=== PATIENT | female | born 1975 | race Caucasian/White ===

== ENCOUNTER 2018-08-01 15:30 | Outpatient (REF) | payer BC, SELFPAY ==
--- NOTE | 2018-08-01 14:00 | PAPFT_PTH ---
PATIENT: Myla Johnson LOC: N U#:[id number] AGE/SX: 43/F ROOM: RE08/01/[address]: Alyson Lopez MD : [id number] BED: DIS: 08/01/2018 SPEC #: [id number] RECD: 08/01/18 17:49 STATUS: REJI REQ #: [id number] MICHAEL: 08/01/18 14:[address]: Alyson Lopez DEPT: [facility] Cytology RECD BY: Bhumi Hurtado ENTERED: 08/01/18 17:49 SP TYPE: PAPFT KALLI DR: Feliz Turner MD Tissues: 1 - CX/ENDOCX FOR PAP SMEARS Procedures: PAP THIN PREP/[facility] Screening HPV DNA PROBE Comments: [id number]
== END 2018-08-01 15:50 ==
LOC: LBN 15:30
PROVIDERS: PCP Family Medicine; Visit Provider Obstetrics & Gynecology
DX: Z12.4 Encounter for screening for malignant neoplasm of cervix (principal); Z11.51 Encounter for screening for human papillomavirus (HPV)
CPT/HCPCS: 88142; 87624

== ENCOUNTER 2019-02-02 02:16 | Outpatient (CLI) | payer BC, SELFPAY ==
[2019-02-02 08:03] LABS: Calculated LDL 188 mg/dL; Cholesterol 257 mg/dL (50-200); HDL Cholesterol 54 mg/dL (40-60); Triglyceride 79 mg/dL (30-150)
== END 2019-02-02 02:36 ==
PROVIDERS: PCP Family Medicine; Visit Provider Family Medicine
DX: E78.5 Hyperlipidemia, unspecified (principal)
CPT/HCPCS: 36415; 80061; 83721

== ENCOUNTER 2020-02-16 03:25 | Outpatient (CLI) | payer OTHER, SELFPAY ==
[2020-02-16 08:17] LABS: HCT 43.5 % (36.0-46.0); HGB 14.5 g/dL (12.0-15.5); Mean Corp. HGB Concentration 33.3 g/dL (32.0-36.0); Mean Platelet Volume 10.7 fL (8.0-11.0); Platelet Count 196 x1000/uL (130-400); RBC Distribution Width 12.7 % (11.7-14.6); White Blood Cell Count 5.94 k/cumm (4.4-10.8)
[2020-02-16 10:09] LABS: ALT 27 U/L (14-59); AST 14 U/L (15-37); Albumin 3.7 g/dL (3.4-5.0); Alkaline Phosphatase 30 U/L (46-116); Anion Gap 10.2 mmol/L (3-11); BUN 12 mg/dL (7-18); Bilirubin, Total 0.7 mg/dL (0.2-1.0); CO2 24.8 mmol/L (21.0-32.0); CREATININE 0.88 mg/dL (0.55-1.02); Calcium 8.9 mg/dL (8.5-10.1); Calculated LDL 172 mg/dL (<100); Chloride 105 mmol/L (98-107); Cholesterol 233 mg/dL (<200); Glucose 83 mg/dL (74-106); HDL Cholesterol 45 mg/dL (40-60); Potassium 3.9 mmol/L (3.5-5.1); Sodium 140 mmol/L (136-145); TSH (W/Ref FT4) 3.86 uIU/mL (0.36-3.74); Total Protein 6.8 g/dL (6.4-8.2); Triglyceride 82 mg/dL (<150)
[2020-02-16 10:43] LABS: FREE T4 1.05 ng/dL (0.76-1.46)
[2020-02-17 15:57] LABS: Lipoprotein (a) 72 mg/dL (<=30)
[2020-02-24 09:42] LABS: Apolipoprotein A1, S 130 mg/dL (>or=140); Apolipoprotein B, S 128 mg/dL (See Comment)
== END 2020-02-16 03:45 ==
PROVIDERS: PCP Family Medicine; Visit Provider Nurse Practitioner
DX: R63.0 Anorexia (principal); E78.5 Hyperlipidemia, unspecified; E03.9 Hypothyroidism, unspecified
CPT/HCPCS: 36415; 80053; 80061; 82172; 83695; 85027; 84439; 84443

== ENCOUNTER 2020-03-02 02:40 | Outpatient (CLI) | payer OTHER, SELFPAY ==
[2020-03-04 10:47] LABS: Lyme Ab w Rflx to Lyme Confirm Negative (Negative)
[2020-03-08 14:57] LABS: Helicobacter pylori Ag, Feces Negative (Negative)
== END 2020-03-02 03:00 ==
PROVIDERS: Nurse Practitioner; PCP Family Medicine; Visit Provider Family Medicine
DX: K21.9 Gastro-esophageal reflux disease without esophagitis (principal); M25.50 Pain in unspecified joint
CPT/HCPCS: 36415; 87338; 84443; 86618

== ENCOUNTER 2022-08-31 08:07 | Outpatient (CLI) | payer BC, SELFPAY ==
--- NOTE | 2022-08-31 08:00 | RT.EKG_ITS ---
APPROVED REPORT Exam: Resting ECG Reason for Exam: Chest discomfort Patient Location: O HR:74 bpm ECG Measurements Heart Rate 74 AXIS IA 152 P 74 QRSd 95 QRS 45 QT 402 T 63 QTc 446 Conclusion Sinus rhythm...normal P axis, V-rate 50- 99 Probable left atrial enlargement...P >50mS, <-0.10mV V1 Otherwise normal
== END 2022-08-31 08:08 | disposition home or self-care (01) ==
PROVIDERS: PCP Family Medicine; Visit Provider Family Medicine
DX: R07.89 Other chest pain (principal); E78.01 Familial hypercholesterolemia; R00.0 Tachycardia, unspecified
CPT/HCPCS: 93010

== ENCOUNTER 2023-10-08 04:31 | Outpatient (CLI) | payer BC, SELFPAY ==
[2023-10-08 08:40] LABS: TSH (W/Ref FT4) 5.54 uIU/mL (0.36-3.74)
[2023-10-08 08:58] LABS: FREE T4 0.89 ng/dL (0.76-1.46)
[2023-10-10 12:44] LABS: Lipoprotein (a) 184 nmol/L (<75)
[2023-10-11 16:16] LABS: Apolipoprotein B, Serum 87 mg/dL (48-124); Beta VLDL Cholesterol Not Detected mg/dL (<15); Beta VLDL Triglycerides Not Detected mg/dL (<15); Cholesterol, Total, CDC 163 mg/dL; Chylomicron Cholesterol Not Detected; Chylomicron Triglycerides Not Detected; HDL Cholesterol, CDC 38 mg/dL (>=50); LDL Cholesterol 89 mg/dL; LDL Triglycerides 27 mg/dL (<=50); Lp(a) Cholesterol 16 mg/dL (<5); LpX Not detected; Triglycerides, CDC 69 mg/dL; VLDL Cholesterol 20 mg/dL (<30); VLDL Triglycerides 30 mg/dL (<120)
== END 2023-10-08 04:32 | disposition home or self-care (01) ==
LOC: LBO 04:32
PROVIDERS: PCP Family Medicine; Visit Provider Family Medicine
DX: E03.9 Hypothyroidism, unspecified (principal); E78.5 Hyperlipidemia, unspecified
CPT/HCPCS: 36415; 80061; 83695; 82172; 82664; 84439; 84443

== ENCOUNTER 2024-02-26 10:46 | Outpatient (CLI) | payer BC, SELFPAY ==
[2024-02-26 11:12] LABS: TSH (W/Ref FT4) 6.11 uIU/mL (0.36-3.74); Vitamin D 25 Total 21.8 ng/mL (30-100)
[2024-02-26 11:29] LABS: FREE T4 0.77 ng/dL (0.76-1.46)
[2024-02-27 08:33] LABS: HIV-1/2 Ag & Ab Screen Negative (Negative)
[2024-02-27 09:03] LABS: Hepatitis C Ab w Rflx HCV PCR Negative (Negative)
== END 2024-02-26 10:47 | disposition home or self-care (01) ==
LOC: LBO 10:47
PROVIDERS: PCP Family Medicine; Visit Provider Family Medicine
DX: E03.9 Hypothyroidism, unspecified (principal); E06.3 Autoimmune thyroiditis; E66.9 Obesity, unspecified; Z11.4 Encounter for screening for human immunodeficiency virus [HIV]; Z11.59 Encounter for screening for other viral diseases; Z00.00 Encounter for general adult medical examination without abnormal findings
CPT/HCPCS: 36415; 82306; 86803; 87340; 87389; 82040; 83036; 84155; 84439; 84443

== ENCOUNTER 2024-03-20 13:57 | Outpatient (CLI) | payer BC, SELFPAY ==
--- NOTE | 2024-03-20 12:30 | DI.RAD_ITS ---
Exam(s) XR CHEST 2V PA LATERAL EXAM: XR CHEST 2V PA LATERAL CLINICAL HISTORY: Coughing/fever/diminished lung sounds, R05.9. TECHNIQUE: 2D digital imaging was performed. COMPARISON: No exams were available for comparison FINDINGS: 2 views: Heart size is normal. The mediastinum is not widened. There is an area of infiltrate in the left lower lobe posterior basal segment. There are no infiltra logan in the right lung. No pleural effusions. IMPRESSION: Left lower lobe infiltrate. Appropriate follow-up recommended. DATA REPOSITORY: RADIATION DOSE DELIVERED:
== END 2024-03-20 14:17 ==
LOC: DI 13:57
PROVIDERS: PCP Family Medicine; Visit Provider Nurse Practitioner Family
DX: R91.8 Other nonspecific abnormal finding of lung field (principal)
CPT/HCPCS: 71046

== ENCOUNTER 2024-04-03 11:19 | Outpatient (CLI) | payer BC, SELFPAY ==
--- NOTE | 2024-04-03 09:00 | DI.RAD_ITS ---
Exam(s) XR CHEST 2V PA LATERAL EXAM: XR CHEST 2V PA LATERAL CLINICAL HISTORY: Recent pneumonia/not better,cough, r05.9 TECHNIQUE: 2D digital imaging was performed. Two views. COMPARISON: No exams were available for comparison FINDINGS: HEART: Normal size. Aorta: Not dilated. PULMONARY VASCULATURE: Normal. MEDIASTINUM: Unremarkable. LUNGS: Clear. Interval clearing of previously noted left lower lobe pneumonia. No new infiltrate se en. PLEURAL SPACE: No pleural effusion or pneumothorax. BONE:Unremarkable for age. SOFT TISSUES: Unremarkable. IMPRESSION: No acute abnormality. Clearing of previously noted left lower lobe pneumonia. DATA REPOSITORY: RADIATION DOSE DELIVERED:
== END 2024-04-03 11:39 ==
LOC: DI 11:20
PROVIDERS: PCP Family Medicine; Visit Provider Nurse Practitioner Family
DX: R05.9 Cough, unspecified (principal)
CPT/HCPCS: 71046

== ENCOUNTER 2024-05-18 09:32 | Outpatient (CLI) | payer BC, SELFPAY ==
[2024-05-18 07:33] LABS: Abs Immature Grans 0.01 10^3/uL (0.0-0.06); Absolute Basophil Count 0.05 10^3/uL (0.0-0.2); Absolute Eosinophil Count 0.02 10^3/uL (0.0-0.7); Absolute Lymphocyte Count 2.34 10^3/uL (1.2-3.4); Absolute Monocyte Count 0.44 10^3/uL (0.1-0.8); Absolute Neutrophil Count 3.46 10^3/uL (1.2-6.7); Basophils % 0.8 %; Eosinophils % 0.3 %; HCT 46.3 % (36.0-46.0); HGB 15.4 g/dL (11.2-15.7); Immature Grans % 0.2 %; MCH 29.7 pg (27.0-33.0); MCHC 33.3 % (32.0-36.0); MCV 89 fL (80-95); MPV 10.2 fL (8.0-11.0); Neutrophils % 54.7 %; Platelet Count 183 10^3/uL (130-400); RBC 5.19 10^6/uL (3.93-5.22); RDW 12.5 % (11.7-14.6); WBC 6.32 10^3/uL (4.4-10.8)
[2024-05-18 07:58] LABS: TSH (W/Ref FT4) 4.22 uIU/mL (0.36-3.74)
[2024-05-18 08:42] LABS: FREE T4 0.85 ng/dL (0.76-1.46)
== END 2024-05-18 09:33 | disposition home or self-care (01) ==
LOC: LBO 09:32
PROVIDERS: PCP Family Medicine; Visit Provider Family Medicine
DX: E03.9 Hypothyroidism, unspecified (principal); E06.3 Autoimmune thyroiditis; R53.83 Other fatigue; F32.1 Major depressive disorder, single episode, moderate; F41.9 Anxiety disorder, unspecified; B35.1 Tinea unguium; L82.1 Other seborrheic keratosis
CPT/HCPCS: 36415; 84439; 84443; 85025

== ENCOUNTER 2024-09-22 07:30 | Outpatient (CLI) | payer BC, SELFPAY ==
[2024-09-22 08:26] LABS: TSH (W/Ref FT4) 3.61 uIU/mL (0.36-3.74)
== END 2024-09-22 07:31 | disposition home or self-care (01) ==
PROVIDERS: PCP Family Medicine; Visit Provider Family Medicine
DX: E03.9 Hypothyroidism, unspecified; E06.3 Autoimmune thyroiditis
CPT/HCPCS: 36415; 80061; 80076; 82306; 82172; 82664; 84443

== ENCOUNTER 2024-11-24 08:32 | Outpatient (CLI) | payer BC, SELFPAY ==
[2024-11-24 08:03] LABS: Abs Immature Grans 0.02 10^3/uL (0.0-0.06); Absolute Basophil Count 0.05 10^3/uL (0.0-0.2); Absolute Eosinophil Count 0.07 10^3/uL (0.0-0.7); Absolute Monocyte Count 0.47 10^3/uL (0.1-0.8); Absolute Neutrophil Count 3.39 10^3/uL (1.2-6.7); Basophils % 0.9 %; Eosinophils % 1.2 %; HGB 15.2 g/dL (11.2-15.7); Immature Grans % 0.4 %; Lymphocytes % 29.8 %; MCH 29.7 pg (27.0-33.0); MCV 90 fL (80-95); MPV 10.5 fL (8.0-11.0); Monocytes % 8.2 %; Neutrophils % 59.5 %; Platelet Count 170 10^3/uL (130-400); RBC 5.11 10^6/uL (3.93-5.22); RDW 12.2 % (11.7-14.6); RDW-SD 40.3 fL
[2024-11-24 08:09] LABS: Bilirubin Negative (Negative); Blood Trace-lysed (Negative); Clarity Clear (Clear); Glucose Negative (Negative); Ketones Negative (Negative); Leukocyte Esterase Negative (Negative); Nitrite Negative (Negative); Specific Gravity 1.015 (1.005-1.025); Urobilinogen 0.2 mg/dL (Up to 0.2)
[2024-11-24 08:17] LABS: Bacteria Moderate HPF (Negative); C & S Indicated? No; Casts Negative LPF (Negative); Crystals Negative HPF (Negative); Epithelial Cells Moderate HPF (Negative); Mucus Trace (Negative); RBC 0-2 HPF (0-2); WBC 0-2 HPF (0-5)
[2024-11-24 08:27] LABS: ALT 32 U/L (14-59); AST 23 U/L (15-37); Albumin 3.9 g/dL (3.4-5.0); Alkaline Phosphatase 39 U/L (46-116); Anion Gap 5.4 mmol/L (3-11); BUN 16 mg/dL (7-18); Bilirubin, Total 0.8 mg/dL (0.2-1.0); CO2 28.6 mmol/L (21.0-32.0); CREATININE 0.8 mg/dL (0.55-1.02); Calcium 8.9 mg/dL (8.5-10.1); Chloride 104 mmol/L (98-107); Estimated GFR 90.27 (mL/min/1.73m2); Glucose 81 mg/dL (74-106); Potassium 3.6 mmol/L (3.5-5.1); Sodium 138 mmol/L (136-145); Total Protein 7.4 g/dL (6.4-8.2)
== END 2024-11-24 08:33 | disposition home or self-care (01) ==
LOC: LBO 08:32
PROVIDERS: PCP Family Medicine; Visit Provider Family Medicine
DX: Z00.00 Encounter for general adult medical examination without abnormal findings (principal); R51.9 Headache, unspecified; R30.0 Dysuria
CPT/HCPCS: 36415; 80053; 81003; 81015; 85025

== ENCOUNTER 2025-01-05 08:06 | Outpatient (CLI) | payer BC, SELFPAY ==
[2025-01-05 08:17] LABS: TSH (W/Ref FT4) 0.61 uIU/mL (0.36-3.74)
[2025-01-06 10:18] LABS: Alpha 1 Antitrypsin,Serum 69 mg/dL (90-200)
[2025-01-08 17:49] LABS: Apolipoprotein B, Serum 68 mg/dL (48-124); Beta VLDL Cholesterol Not Detected mg/dL (<15); Beta VLDL Triglycerides Not Detected mg/dL (<15); Cholesterol, Total, CDC 134 mg/dL; Chylomicron Cholesterol Not Detected; Chylomicron Triglycerides Not Detected; HDL Cholesterol, CDC 41 mg/dL (>=50); LDL Cholesterol 66 mg/dL; LDL Triglycerides 29 mg/dL (<=50); Lp(a) Cholesterol 16 mg/dL (<5); LpX Not detected; Triglycerides, CDC 83 mg/dL; VLDL Cholesterol 11 mg/dL (<30); VLDL Triglycerides 43 mg/dL (<120)
== END 2025-01-05 08:07 | disposition home or self-care (01) ==
LOC: LBO 08:07
PROVIDERS: PCP Family Medicine; Visit Provider Family Medicine
DX: Z83.49 Family history of other endocrine, nutritional and metabolic diseases; E78.01 Familial hypercholesterolemia; E03.9 Hypothyroidism, unspecified; E06.3 Autoimmune thyroiditis
CPT/HCPCS: 36415; 80061; 82306; 82103; 82172; 82664; 84443

== ENCOUNTER 2025-04-23 04:11 | Outpatient (CLI) | payer BC, SELFPAY ==
--- NOTE | 2025-04-23 06:00 | DI.MAMMO_ITS ---
Exam(s) MAMMO SCREENING EXAM: MAMMO SCREENING CLINICAL HISTORY: screening,z12.39. TECHNIQUE: Bilateral full field digital CC and MLO mammographic images were obtained with 3D tomosynthesis and utilizing computer aided detection (CAD). COMPARISON: None. This is a baseline mammogram on this 50-year-old FINDINGS: There are no CAD designations. There are no spiculated masses nor malignant appearing microcalcification groups. There is no significant architectural distortion nor skin thickening-retraction. IMPRESSION: No radiographic evidence of malignancy. BI-RADS Category 1 - Negative Breast Density - Category B - There are scattered areas of fibroglandular density. Breast density Category C or D implies that the patient has dense breast tissue. Dense breast tissue can make it harder to find cancer on a mammogram. Dense breast tissue is also associated with an increased risk of breast cancer. This information about the result of the mammogram report was provided to the patient to raise their awareness. Use this report when you speak with the patient about their risks for breast cancer, which includes their family history. At that time, you may recommend additional screening tests (Ultrasound or MRI) as these tests may add significant information. A negative radiographic report should not delay biopsy if a dominant or clinically suspicious mass is present. Up to ten percent of cancers are not identified on mammography. A negative report may reinforce clinical impression. Adenosis and dense breasts may obscure an underlying neoplasm. False positive reports average 6 to 10%. Patient will receive a letter notifying them of these results.
== END 2025-04-23 04:31 ==
LOC: DI 04:12
PROVIDERS: PCP Family Medicine; Visit Provider Family Medicine
DX: Z12.31 Encounter for screening mammogram for malignant neoplasm of breast (principal); N95.9 Unspecified menopausal and perimenopausal disorder
CPT/HCPCS: 77063; 77067